=== PATIENT | female | born 1960 | race Caucasian/White ===

== ENCOUNTER → 2020-01-21 14:39 | Outpatient (CLI) | payer BC, SELFPAY ==
--- NOTE | ~2020-01-21 | US_ITS ---
EXAMINATION: US pelvic complete w TV DATE: 01/21/2020 15:10 INDICATION: Abnormal uterine bleeding. Comparison:Ultrasound dated 02/20/2015 TECHNIQUE: Multiple transabdominal and endovaginal sonographic images of the pelvis performed. FINDINGS: The uterus measures 7.4 x 4.6 x 4.6 cm. The endometrial complex measures 7 mm. The right ovary measures 1.2 x 1 x 1.2 cm and the left ovary measures 2.5 x 1.7 x 1.8 cm. There are small follicles in each ovary. There is no free fluid in the pelvis. There are no abnormal masses seen on either side. IMPRESSION: 1. Unremarkable pelvic ultrasound. Reviewed, dictated and finalized at location A.
== END ==
PROVIDERS: Visit Provider Student in an Organized Health Care Education/Training Program
DX: N93.9 Abnormal uterine and vaginal bleeding, unspecified (principal)
CPT/HCPCS: 76830; 76856

== ENCOUNTER → 2020-06-28 10:16 | Outpatient (CLI) | payer BC, SELFPAY ==
--- NOTE | ~2020-06-28 | DEXA_ITS ---
Bone Density Report Name: Viktoriya Moffett Age: 60 Sex: Female Ethnicity: White Date of : 1960 Indication: monitoring treatment; parental hip fracture; height loss; postmenopausal Referring Provider: Rupali Hussein Study: Bone densitometry was performed. Exam Date: June 28, 2020 Accession number: [id number] Bone Density: Region BMD T-score Z-score Classification AP Spine (L1-L4) 1.004 -0.4 1.0 Normal Femoral Neck (Left) 0.776 -0.7 0.6 Normal Total Hip (Left) 1.044 0.8 1.8 Normal Femoral Neck (Right) 0.797 -0.5 0.8 Normal Total Hip (Right) 0.967 0.2 1.2 Normal Total Hip Mean 1.006 0.5 1.5 Normal World Health Organization criteria for BMD impression classify patients as: Normal (T-score at or above -1.0), Osteopenia (T-score between -1.0 and -2.5), or Osteoporosis (T-score at or below -2.5). 10-year Fracture Risk: FRAX not reported because: All T-scores for Spine Total, Hip Total, Femoral Neck at or above -1.0 Treated for osteoporosis Previous Exams: Region Exam Age BMD T-score BMD Change BMD Change Date g/cm2 vs Baseline vs Previous AP Spine(L1-L4) 06/28/2020 60 1.004 -0.4 0.062* 0.009 04/01/2018 57 0.995 -0.5 0.054* 0.057* 03/28/2016 55 0.938 -1.0 -0.004 -0.004 11/06/2013 53 0.941 -1.0 Total Hip(Left) 06/28/2020 60 1.044 0.8 0.055* 0.070* 04/01/2018 57 0.974 0.3 -0.016 0.029* 03/28/2016 55 0.945 0.0 -0.044* -0.044* 11/06/2013 53 0.990 0.4 Total Hip(Right) 06/28/2020 60 0.967 0.2 0.040* 0.060* 04/01/2018 57 0.907 -0.3 -0.020 0.006 03/28/2016 55 0.902 -0.3 -0.025 -0.025 11/06/2013 53 0.927 -0.1 *Denotes significance at 95% confidence level, LSC for AP Spine = 0.022 g/cm2, LSC for Total Hip = 0.027 g/cm2 Clinical Information Provided by Patient: Parent has had a hip fracture Is being treated for osteoporosis Has used the following medications: Vitamin D Patient maximum height was 65.5 Menopause Age: 53 No regular weight bearing exercise Does not regularly consume dairy products Drinks caffeinated beverages Onset of menses at age 13 Number of children 1 Impression: The patient has normal bone mass. The patient has risk factors, including: parental hip fracture. No significant bone loss was observed.
--- NOTE | ~2020-06-28 | MM_ITS ---
EXAMINATION: MM screening [facility] BI w suzanne HISTORY: Screening mammogram TECHNIQUE: Craniocaudal and mediolateral oblique 3-D tomosynthesis images were obtained and synthetic 2-D images were generated. CAD analysis was submitted and interpreted. COMPARISON: 12/15/2017, 04/20/2016, 04/03/2016 BREAST PARENCHYMAL COMPOSITION: There are scattered areas of fibroglandular density. FINDINGS: An asymmetry in the upper left breast on the mediolateral oblique view is stable on multipl e prior examinations. There is no evidence of suspicious mass, calcification, or architectural distor tion to suggest malignancy in either breast. There has been no suspicious interval change. IMPRESSION: 1. No mammographic evidence of malignancy. 2. Recommend routine screening mammography in one year. BI-RADS Category 2: Benign finding(s). Reviewed, dictated and finalized at location A. FOLDER
== END ==
PROVIDERS: PCP Family Medicine; Visit Provider Student in an Organized Health Care Education/Training Program
DX: Z12.31 Encounter for screening mammogram for malignant neoplasm of breast (principal); Z78.0 Asymptomatic menopausal state
CPT/HCPCS: 77063; 77067; 77080

== ENCOUNTER → 2020-07-27 10:29 | Outpatient (CLI) | payer BC, SELFPAY ==
--- NOTE | ~2020-07-27 | XR_ITS ---
EXAMINATION: XR lumbar spine 2-3V EXAM DATE: 07/27/2020 10:45 INDICATION: M53.3 - Sacrococcygeal disorders, not elsewhere classified . Low back, pelvic pain more o n the right side. Right leg numbness and tingling. TECHNIQUE: Lumber spine frontal, lateral, lateral L5-S1 projections for interpretation. There is no prior study for comparison. FINDINGS: There is 3 mm anterolisthesis L4 on L5. The vertebral bodies are otherwise aligned. Vertebr al body and disc heights are well-maintained. Mild to moderate lower lumbar facet arthropathy. Parasp inal soft tissue is unremarkable. Sacrum, sacroiliac joints, sacral arcuate lines are intact. IMPRESSION: 1. L4-5 grade 1 anterolisthesis. 2. Mild to moderate lower lumbar facet arthropathy. Reviewed, dictated and finalized at location B. TIVE SERVICES COORDINATOR
--- NOTE | ~2020-07-27 | XR_ITS ---
EXAMINATION: XR pelvis 1-2V EXAM DATE: 07/27/2020 10:45 INDICATION: M53.3 - Sacrococcygeal disorders, not elsewhere classified. Pelvic pain. TECHNIQUE: Pelvis frontal projection(s) obtained and reviewed. There is no prior study for compariso n. FINDINGS: There is mild symmetric bilateral hip primary osteoarthritis. There are no acute fractures or dislocations identified. There is no subcutaneous gas. The soft tissue is unremarkable. There are no radiopaque foreign bodies. Sacrum, sacroiliac joints, sacral arcuate lines are intact. IMPRESSION: Mild symmetric bilateral hip osteoarthritis. Reviewed, dictated and finalized at location B. NING AND QUALITY MANAGER
== END ==
PROVIDERS: PCP Physician Assistant; Visit Provider Physician Assistant
DX: M53.3 Sacrococcygeal disorders, not elsewhere classified (principal); G89.29 Other chronic pain; M16.0 Bilateral primary osteoarthritis of hip
CPT/HCPCS: 72100; 72170

== ENCOUNTER → 2021-07-01 10:36 | Outpatient (CLI) | payer OTHER, SELFPAY ==
--- NOTE | ~2021-07-01 | MM_ITS ---
EXAMINATION: MM screening [facility] BI w suzanne HISTORY: Screening TECHNIQUE: Craniocaudal and mediolateral oblique 3-D tomosynthesis images were obtained and synthetic 2-D images were generated. CAD analysis was submitted and interpreted. COMPARISON: Comparison to multiple prior studies sequentially, with oldest reviewed study dated 03/04. BREAST PARENCHYMAL COMPOSITION: Breast composed of scattered areas of fibroglandular density. FINDINGS: There is no evidence of suspicious mass, calcification, or architectural distortion to sugg est malignancy in either breast. There has been no suspicious interval change. IMPRESSION: 1. No mammographic evidence of malignancy. 2. Recommend routine screening mammography in one year. BI-RADS Category 1: Negative Reviewed, dictated and finalized at location A. LATE CUTTER
== END ==
PROVIDERS: Visit Provider Student in an Organized Health Care Education/Training Program
DX: Z12.31 Encounter for screening mammogram for malignant neoplasm of breast (principal)
CPT/HCPCS: 77063; 77067

== ENCOUNTER → 2023-01-23 13:19 | Outpatient (CLI) | payer OTHER, SELFPAY ==
--- NOTE | ~2023-01-23 | MM_ITS ---
EXAMINATION: MM screening [facility] BI w suzanne HISTORY: Screening mammogram TECHNIQUE: Craniocaudal and mediolateral oblique 3-D tomosynthesis images were obtained and synthetic 2-D images were generated. CAD analysis was submitted and interpreted. COMPARISON: 07/01/2021, 06/28/2020, 12/15/2017 bilateral screening mammogram examinations BREAST PARENCHYMAL COMPOSITION: There are scattered areas of fibroglandular density. FINDINGS: There is no evidence of suspicious mass, calcification, or architectural distortion to sugg est malignancy in either breast. There has been no suspicious interval change. IMPRESSION: 1. No mammographic evidence of malignancy. 2. Recommend routine screening mammography in one year. BI-RADS Category 1: Negative Reviewed, dictated and finalized at location A.
--- NOTE | ~2023-01-23 | DEXA_ITS ---
Bone Density Report Name: KISHA CRAWFORD Age: 62 Sex: Female Ethnicity: White Date of : 1960 Indication: postmenopausal; screening for osteoporosis; parental hip fracture; height loss; Referring Provider: JANE PALENCIA Study: Bone densitometry was performed. Exam Date: January 23, 2023 Accession number: [id number] Bone Density: Region BMD T-score Z-score Classification AP Spine (L1-L4) 1.041 -0.1 1.5 Normal Femoral Neck (Left) 0.768 -0.7 0.7 Normal Total Hip (Left) 1.016 0.6 1.7 Normal Femoral Neck (Right) 0.805 -0.4 1.0 Normal Total Hip (Right) 0.976 0.3 1.4 Normal Total Hip Mean 0.996 0.5 1.6 Normal World Health Organization criteria for BMD impression classify patients as: Normal (T-score at or above -1.0), Osteopenia (T-score between -1.0 and -2.5), or Osteoporosis (T-score at or below -2.5). 10-year Fracture Risk: FRAX not reported because: All T-scores for Spine Total, Hip Total, Femoral Neck at or above -1.0 Previous Exams: Region Exam Age BMD T-score BMD Change BMD Change Date g/cm2 vs Baseline vs Previous AP Spine(L1-L4) 01/23/2023 62 1.041 -0.1 0.100* 0.038* 06/28/2020 60 1.004 -0.4 0.062* 0.009 04/01/2018 57 0.995 -0.5 0.054* 0.057* 03/28/2016 55 0.938 -1.0 -0.004 -0.004 11/06/2013 53 0.941 -1.0 Total Hip(Left) 01/23/2023 62 1.016 0.6 0.026 -0.028* 06/28/2020 60 1.044 0.8 0.055* 0.070* 04/01/2018 57 0.974 0.3 -0.016 0.029* 03/28/2016 55 0.945 0.0 -0.044* -0.044* 11/06/2013 53 0.990 0.4 Total Hip(Right) 01/23/2023 62 0.976 0.3 0.049* 0.009 06/28/2020 60 0.967 0.2 0.040* 0.060* 04/01/2018 57 0.907 -0.3 -0.020 0.006 03/28/2016 55 0.902 -0.3 -0.025 -0.025 11/06/2013 53 0.927 -0.1 *Denotes significance at 95% confidence level, LSC for AP Spine = 0.022 g/cm2, LSC for Total Hip = 0.027 g/cm2 Clinical Information Provided by Patient: Parent has had a hip fracture Has 3 or more alcoholic drinks per day Has used the following medications: HRT (i.e. estrogen/hormone therapy) Patient maximum height was 65.5 Menopause Age: 53 No regular weight bearing exercise Does not regularly consume dairy products Onset of menses at age 13 Number of children 1
== END ==
PROVIDERS: PCP Obstetrics & Gynecology; Visit Provider Obstetrics & Gynecology
DX: Z12.31 Encounter for screening mammogram for malignant neoplasm of breast (principal); Z78.0 Asymptomatic menopausal state
CPT/HCPCS: 77063; 77067; 77080

== ENCOUNTER 2023-06-22 00:52 | Day surgery (SDC) | payer BC, SELFPAY ==
[2023-06-06 12:44] VITALS: BMI 23.8
--- NOTE | 2023-06-20 10:19 | SUR.PREOP ---
Patient called regarding upcoming procedure. Message left on patient's voicemail regarding Reviewed preop instructions, appointment times, and procedure prep.
[2023-06-22 07:51] VITALS: BP 140/78; PULSE 86; RESP 20; TEMP 36.3; O2SAT 100
[2023-06-22] MEDS: LACTATED RINGERS 1,000 ML 150 ML IV CONT (08:04)
--- NOTE | 2023-06-22 08:29 | WPDANESEPPF ---
Anes - Initial Pre Proc Eval Procedure: Operation Date: 06/22/23 09:00 Proposed Procedures p Screening Colonoscopy - Tyrone Tee MD Date/Time: 06/22/23 08:29 Surgeon: Tyrone Tee MD Pre Op Diagnosis: neoplasm screening Patient Data Age: 63 Gender: F Height: 1.65 m Weight: 63.3 kg Last Vital Signs Temp 97.3 F L 06/22/23 07:51 Pulse 86 06/22/23 07:51 Resp 20 06/22/23 07:51 BP 140/78 06/22/23 07:51 Pulse Ox 100 06/22/23 07:51 O2 Del Method Room Air 06/22/23 07:51 Allergies Allergy/AdvReac Type Severity Reaction Status Date / Time No Known Allergies Allergy Verified 06/22/23 07:50 Home Medications Medication Instructions Recorded Confirmed Type levothyroxine 100 mcg tablet 100 mcg PO DAILY 01/12/20 06/06/23 History liothyronine 5 mcg tablet 10 mcg PO BID 07/20/20 06/06/23 History progesterone micronized 200 mg 200 mg PO DAILY 07/20/20 06/06/23 History capsule conjugated estrogens 0.3 mg tablet 0.3 mg PO [id number] 03/28/22 06/06/23 History testosterone 50 mg implant pellet 50 mg implant [id number] 03/28/22 06/06/23 History Patient hx anesthesia problems: none Family hx anesthesia problems: none Results Review: All pre-operative results and documents have been reviewed as part of the pre-operative evaluation. [facility] Past Medical History Medical History Cancer, skin, squamous cell History of vaginal delivery Hypothyroid Surgical History Surgical History History of bilateral tubal ligation Hx of tonsillectomy [place] teeth removed Family History Family History Grandparent Diabetes mellitus Family history of cardiovascular disease Family history of coronary artery disease Cerebrovascular accident Father Family history of malignant neoplasm of esophagus Mother Hypertension Social History Social History (Updated 03/26/23 @ 08:25 by Hiwot Juan MA) Smoking status: Never smoker Second hand tobacco smoke exposure: No Alcohol intake: current Drinks per week: 4 Alcohol use details: WINE Substance use: never Substance use type: does not use Lack of Transportation: No Lack of Food: Never True Current Housing: I Have Housing Concerned About Future Housing: No Difficulty Paying Gas/Electric Bills: No Difficulty Paying for Meds: No Currently Unemployed: No Education: High School Diploma/GED Difficulty w/ Childcare or Family Care: No Living arrangements: with family Occupation/Education: other Gender identity (if verbalized by the patient): Female Sexual Orientation (if Verbalized by the Patient): Straight or Heterosexual Spiritual care concerns: No Anes - Eval Final PreProcedure Day of Procedure 06/22/23 08:29 Patient weight: normal Heart: regular rate and rhythm Lungs: clear to auscultation Airway: Mallampati scale class II Neurological: alert and oriented Last oral intake: >/= 8 hours ASA classification: II Emergent: no Anesthetic plan: proceed Anesthesia type and monitoring: general GIVS and standard monitoring Results Review: All pre-operative results and documents have been reviewed as part of the pre-operative evaluation. Informed Consent: The patient's anesthetic plan and its attendant risks and benefits were discussed with the patient/family/POA. Questions were solicited and answers provided to the satisfaction of the patient/family/POA.
--- NOTE | 2023-06-22 08:49 | PM.HPGS ---
History of Present Illness History of Present Illness Consent: Risks, benefits, and alternatives have been discussed and questions answered. Patient agrees to proceed with procedure. Chief complaint: neoplasm screening Narrative: Viktoriya Harmon is a 63 year old female here for screening colonoscopy, last one about 10 years ago Review of Systems Constitutional: Constitutional: Denies headache(s) and Denies weakness Eyes: Eyes: Denies blurry vision ENT: Reports Normal hearing present, Denies headache(s) and Denies neck pain Cardiovascular: Cardiovascular: Denies chest pain and Denies dyspnea Respiratory: Respiratory: Denies dyspnea Gastrointestinal: Gastrointestinal: Reports no additional gastrointestinal complaints Genitourinary: Genitourinary: Denies dysuria Musculoskeletal: Musculoskeletal: Denies neck pain Integumentary/Breasts: Skin/Breast: Denies dry skin Neurologic: Reports Normal hearing present, Denies headache(s) and Denies weakness Psychiatric: Psychiatric: Denies anxiety Endocrine: Endocrine: Denies change in body appearance Hematologic/Lymphatic: Hematologic/Lymphatic: Denies easy bleeding Allergic/Immunologic: Allergic/Immunologic: Denies urticaria PMFSH Past Medical History Medical History Cancer, skin, squamous cell History of vaginal delivery Hypothyroid Surgical History Surgical History History of bilateral tubal ligation Hx of tonsillectomy [place] teeth removed Family History Family History Grandparent Diabetes mellitus Family history of cardiovascular disease Family history of coronary artery disease Cerebrovascular accident Father Family history of malignant neoplasm of esophagus Mother Hypertension Social History Social History (Updated 03/26/23 @ 08:25 by Hiwot Juan MA) Smoking status: Never smoker Second hand tobacco smoke exposure: No Alcohol intake: current Drinks per week: 4 Alcohol use details: WINE Substance use: never Substance use type: does not use Lack of Transportation: No Lack of Food: Never True Current Housing: I Have Housing Concerned About Future Housing: No Difficulty Paying Gas/Electric Bills: No Difficulty Paying for Meds: No Currently Unemployed: No Education: High School Diploma/GED Difficulty w/ Childcare or Family Care: No Living arrangements: with family Occupation/Education: other Gender identity (if verbalized by the patient): Female Sexual Orientation (if Verbalized by the Patient): Straight or Heterosexual Spiritual care concerns: No Meds Home Medications and Allergies Home Medications Medication Instructions Recorded Confirmed Type levothyroxine 100 mcg tablet 100 mcg PO DAILY 01/12/20 06/06/23 History liothyronine 5 mcg tablet 10 mcg PO BID 07/20/20 06/06/23 History progesterone micronized 200 mg 200 mg PO DAILY 07/20/20 06/06/23 History capsule conjugated estrogens 0.3 mg tablet 0.3 mg PO [id number] 03/28/22 06/06/23 History testosterone 50 mg implant pellet 50 mg implant [id number] 03/28/22 06/06/23 History Allergies Allergy/AdvReac Type Severity Reaction Status Date / Time No Known Allergies Allergy Verified 06/22/23 07:50 Vital Signs Vital Signs - 24 hr 06/22/23 07:51 Temperature 97.3 F L Pulse Rate 86 Respiratory Rate 20 Blood Pressure 140/78 Pulse Oximetry 100 Oxygen Delivery Room Air Exam Const: General: comfortable and no acute distress HENMT: Face/Nose/Sinus: Normal nares present Eyes: General: appearance normal, both eyes and all related structures Neck: Neck: no JVD Resp: Auscultation: clear to auscultation bilaterally Cardio: Rate: regular rate Rhythm: regular rhythm GI: Inspection: non-distended GI Palp: Yes Soft to palpation Skin: General skin exam: normal color N
[2023-06-22 09:15] VITALS: BP 134/80; PULSE 70; RESP 19; O2SAT 100
[2023-06-22 09:25] VITALS: BP 145/83; PULSE 68; RESP 30; O2SAT 100
[2023-06-22 09:35] VITALS: BP 143/81; PULSE 70; RESP 25; O2SAT 100
== END 2023-06-22 09:46 | disposition home or self-care (01) ==
PROVIDERS: Referring Provider Obstetrics & Gynecology; Visit Provider Internal Medicine Gastroenterology
PROC: 0DJD8ZZ Inspection of Lower Intestinal Tract, Via Natural or Artificial Opening Endoscopic (ICD-10-PCS; CPT 45378; principal; 2023-06-22 09:00)
DX: Z12.11 Encounter for screening for malignant neoplasm of colon (principal); K57.30 Diverticulosis of large intestine without perforation or abscess without bleeding; K64.8 Other hemorrhoids; E03.9 Hypothyroidism, unspecified
CPT/HCPCS: 45378; J2704; J7120

== ENCOUNTER 2024-07-29 15:05 | Outpatient (CLI) | payer BC, SELFPAY ==
--- NOTE | ~2024-07-29 | MM_ITS ---
EXAMINATION: MM screening [facility] BI w suzanne HISTORY: Screening mammogram TECHNIQUE: Craniocaudal and mediolateral oblique 3-D tomosynthesis images were obtained and synthetic 2-D images were generated. CAD analysis was submitted and interpreted. COMPARISON: 01/23/2023, 07/01/2021, 06/28/2020 BREAST PARENCHYMAL COMPOSITION:Not Dense. There are scattered areas of fibroglandular density. FINDINGS: No suspicious mass, calcification, or architectural distortion are identified in either yas ast to suggest malignancy. There has been no suspicious interval change. IMPRESSION: No mammographic evidence of malignancy. Recommend routine screening mammography in one year. BI-RADS Category 1: Negative Reviewed, dictated and finalized at location . OR ANALYTICAL CHEMIST
== END 2024-07-29 15:06 | disposition home or self-care (01) ==
LOC: MICIMG 15:09
PROVIDERS: PCP Nurse Practitioner Obstetrics & Gynecology; Visit Provider Nurse Practitioner Obstetrics & Gynecology
DX: Z12.31 Encounter for screening mammogram for malignant neoplasm of breast (principal)
CPT/HCPCS: 77063; 77067